=== PATIENT | male | born 1960 | race Hispanic/Latino ===

== ENCOUNTER 2017-11-26 18:48 | Inpatient (IN) | payer MEDICARE ==
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
[2017-11-26 19:09] VITALS: BMI 37.2
[2017-11-26 20:01] LABS: ACETAMINOPHEN < 10.0 ug/ml (10.0-20.0); SALICYLATE < 1 mg/dL (2.0-20.0)
[2017-11-26 20:03] LABS: ALBUMIN 3.3 g/dL (3.0-4.8); ALT/SGPT 39 U/L (7-56); AST/SGOT 39 U/L (17-59); BLOOD UREA NITROGEN 14 mg/dL (7-21); CALCIUM 8.9 mg/dL (8.4-10.5); GFR AFRICAN-AMERICAN > 60; GFR NON-AFRICAN AMERICAN > 60
[2017-11-26 20:07] LABS: BASO # 0.05 K/mm3 (0.0-2.0); BASO % 0.9 % (0.0-3.0); EOS # 0.4 (0.0-0.7); EOS % 6.1 % (1.5-5.0); GRAN # 2.33 (1.4-6.5); GRAN % 40.4 % (50.0-68.0); HEMOGLOBIN 14.3 g/dL (14.0-18.0); LYMPH # 2.7 (1.2-3.4); MEAN CELL VOLUME 91.4 fl (80.0-105.0); MEAN CORPUSCULAR HEMOGLOBIN 32.4 pg (25.0-35.0); MEAN CORPUSCULAR HGB CONC 35.5 g/dl (31.0-37.0); MEAN PLATELET VOLUME 10.2 fl (7.0-11.0); MONO # 0.3 (0.1-0.6); MONO % 5.6 % (1.0-6.0); RBC 4.41 10^6/uL (3.5-6.1); RED CELL DISTRIBUTION WIDTH 13.8 % (11.5-14.5); WHITE BLOOD COUNT 5.8 10^3/ul (4.5-11.0)
[2017-11-26 20:10] LABS: VENOUS BLOOD GAS BASE EXCESS -0.6 mmol/L (0.0-2.0); VENOUS BLOOD GAS PO2 68 mm/Hg (30-55); VENOUS BLOOD PH 7.37 (7.32-7.43)
[2017-11-26 20:23] LABS: B-TYPE NATRIURETIC PEPTIDE 30.7 pg/mL (0-450)
[2017-11-26] MEDS ORDERED: cefTRIAXone 1 gm 1 GM/100 ML BAG IVPB STA (20:27)
[2017-11-26] MEDS ORDERED: Azithromycin 500MG/NS 250ml 500 MG/250 ML BAG IVPB STA (20:27)
[2017-11-26] MEDS ORDERED: Sodium Chloride 0.9% 1,000 ML IV STA (20:47)
[2017-11-26] MEDS: Sodium Chloride 0.9% 1,000 ML IV SCH (22:56)
[2017-11-27 05:17] LABS: URINE BILIRUBIN NEGATIVE (NEGATIVE); URINE BLOOD NEGATIVE (NEGATIVE); URINE GLUCOSE (UA) NEGATIVE (NEGATIVE); URINE LEUKOCYTE ESTERASE NEGATIVE Leu/uL (NEGATIVE); URINE PROTEIN NEGATIVE mg/dL (<30 mg/dL); URINE UROBILINOGEN >=8.0 E.U./dL (<1 E.U./dL)
[2017-11-27 05:26] LABS: URINE APPEARANCE CLEAR (CLEAR); URINE COLOR YELLOW (YELLOW)
[2017-11-27 05:54] LABS: BARBITURATES, UR NEGATIVE (NEGATIVE); BENZODIAZEPINES, UR POSITIVE (NEGATIVE); OPIATES, UR NEGATIVE (NEGATIVE); PHENCYCLIDINE, UR NEGATIVE (NEGATIVE)
[2017-11-27] MEDS: Albuterol 0.083% Inhal Sol (2.5 mg/3 mL) UD INH SCH ×4 (07:18→20:32)
[2017-11-27] MEDS: cefTRIAXone 1 gm 1 GM/100 ML BAG IVPB SCH (09:55)
--- NOTE | 2017-11-27 09:57 | CARD ---
APPROVED REPORT Date of service: 11/26/2017 EKG Measurement Heart [id number] <Conclusion> Sinus rhythm with 1st degree AV block Otherwise normal ECG
--- NOTE | 2017-11-27 10:55 | RAD ---
Date of service: 11/26/2017 HISTORY: medical clearance COMPARISON: No prior. FINDINGS: LUNGS: No focal infiltrates. Increased interstitial markings. PLEURA: No significant pleural effusion identified, no pneumothorax apparent. CARDIOVASCULAR: No radiographic findings to suggest acute or significant cardiovascular disease. OSSEOUS STRUCTURES: No significant abnormalities. VISUALIZED UPPER ABDOMEN: Normal. OTHER FINDINGS: None. IMPRESSION: No active disease.
[2017-11-27] MEDS: Azithromycin 500MG/NS 250ml 500 MG/250 ML BAG IVPB SCH (11:03)
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
[2017-11-27] MEDS: oxyCODONE 10 mg Immediate Release Tab PO PRN (19:34)
[2017-11-27] MEDS: Sodium Chloride 0.9% 1,000 ML IV SCH (21:26)
[2017-11-28] MEDS: Sodium Chloride 0.9% 1,000 ML IV SCH (01:33)
[2017-11-28] MEDS: oxyCODONE 10 mg Immediate Release Tab PO PRN ×2 (05:31→16:14)
--- NOTE | 2017-11-28 06:05 | HP ---
11/27/17 Copied To: Viv Mehta MD Attending MD: Viv Mehta MD CHIEF COMPLAINT: Agitation, fatigue. HISTORY OF PRESENT ILLNESS: Mr. Edson Coyle, 57-year-old male with history of hypertension, COPD, hip pain, taking Percocet, psychiatric history including ADHD, depression, schizoaffective, chronically bedridden, ALLERGIC TO CODEINE, has agitation, had acute episode of agitation. The patient was sent to emergency room because of he has episodes of agitation in the [facility], throwing wheelchairs against the windows. Ambulance was called and sent to emergency room for acute psychiatric evaluation. Outpatient, he is feeling very sleepy, dreamy. so he fight back to. No homicidal or suicidal ideation. No auditory or visual hallucinations. No night sweats. No rash. The patient also stated that he has been coughing for past few days as well as productive cough. PAST MEDICAL HISTORY: As above. FAMILY HISTORY: Father and mother, noncontributory. HABITS: No smoking. No drugs. No ethanol. ALLERGIES: THE PATIENT IS ALLERGIC WITH CODEINE. REVIEW OF SYSTEMS: The patient was seen and examined on the bedside. Feeling comfortable. No nausea, vomiting, or diarrhea. Feeling fatigued and tired. No vision changes. No hearing changes. no shortness of breath. No chest pain. PHYSICAL EXAMINATION: VITAL SIGNS: Temperature 98, pulse 66, respiratory rate 18, blood / 80 , pulse oximetry 98. HEENT: Head normocephalic, atraumatic. Eyes, PERRLA. Extraocular muscles intact. Conjunctivae clear. Nose patent. Mucous membrane moist. NECK: Supple. No carotid bruit. No JVD or thyromegaly. CHEST: Bilaterally symmetrical. HEART: S1 and S2 positive. LUNGS: Clear to auscultation. ABDOMEN: Soft. EXTREMITIES: No edema. No cyanosis. NEUROLOGICAL: The patient is awake and alert. Moving all 4 extremities. No focal deficits. LABORATORY DATA: White blood cells 5.8, hemoglobin 14.3, hematocrit 40.3, platelets 148. Sodium 146, potassium 3.9, BUN 14, creatinine 0.7, glucose 124. ASSESSMENT AND PLAN: Mr. Edson Coyle, 57-year-old male has anemia, hyperchloremia, renal insufficiency. The patient came with delirium, pneumonia, abnormal chest x-ray. We admitted the patient. Antibiotics started. Infectious Disease and GI consult called. The patient has history of hip pain. Gastrointestinal and deep venous thrombosis prophylaxes given. Repeat labs. We will follow up. Viv Mehta MD MTDD
[2017-11-28 06:42] LABS: HEMOGLOBIN 14.7 g/dL (14.0-18.0); MEAN CELL VOLUME 91.2 fl (80.0-105.0); MEAN CORPUSCULAR HEMOGLOBIN 32.5 pg (25.0-35.0); MEAN CORPUSCULAR HGB CONC 35.6 g/dl (31.0-37.0); MEAN PLATELET VOLUME 9.9 fl (7.0-11.0); RBC 4.53 10^6/uL (3.5-6.1); RED CELL DISTRIBUTION WIDTH 13.7 % (11.5-14.5); WHITE BLOOD COUNT 4.3 10^3/ul (4.5-11.0)
[2017-11-28 06:53] LABS: IRON 213 ug/dL (45-180)
[2017-11-28 07:03] LABS: % IRON SATURATION 65 % (20-55); TOTAL IRON BINDING CAPACITY 328 ug/dL (261-462)
[2017-11-28 07:04] LABS: LDL CHOLESTEROL 50 mg/dL (0-129)
[2017-11-28 07:12] LABS: ALBUMIN 3.3 g/dL (3.0-4.8); ALT/SGPT 37 U/L (7-56); AST/SGOT 35 U/L (17-59); BLOOD UREA NITROGEN 9 mg/dL (7-21); CALCIUM 8.4 mg/dL (8.4-10.5); GFR AFRICAN-AMERICAN > 60; GFR NON-AFRICAN AMERICAN > 60; HDL CHOLESTEROL 49 mg/dL (29-60)
[2017-11-28] MEDS: Albuterol 0.083% Inhal Sol (2.5 mg/3 mL) UD INH SCH ×4 (07:20→20:27)
[2017-11-28] MEDS: cefTRIAXone 1 gm 1 GM/100 ML BAG IVPB SCH (10:56)
[2017-11-28] MEDS: Azithromycin 500MG/NS 250ml 500 MG/250 ML BAG IVPB SCH (10:56)
[2017-11-28 12:51] LABS: FOLATE 13.8 ng/mL
[2017-11-28] MEDS: Cefepime 1gm in NS 100ml 1 GM/100 ML BAG IVPB SCH ×2 (16:14→23:23)
--- NOTE | 2017-11-28 20:43 | CON ---
Copied To: Brenton Cesar MD Attending MD: Brenton Cesar MD DATE: 11/28/2017 HISTORY OF PRESENT ILLNESS: The patient is in bed, in no acute distress, nontoxic. PHYSICAL EXAMINATION: VITAL SIGNS: Temperature is 98, blood pressure is 120/70, respiratory rate 16. HEENT: Unremarkable. NECK: Supple. LUNGS: Have decreased breath sounds. HEART: Normal S1, S2. ABDOMINAL: Soft, nontender. CHIEF COMPLAINT: Weakness. REVIEW OF SYSTEMS: A 12-point review systems is performed. PAST MEDICAL HISTORY: Significant for hypertension, COPD, diabetes, schizophrenia, depression and chronic bedridden. PAST SURGICAL HISTORY: Significant for a hip. ALLERGIES: THE PATIENT IS ALLERGIC TO CODEINE. MEDICATIONS: Noted. PHYSICAL EXAMINATION: As stated: VITAL SIGNS: Stable with temperature of 98, blood pressure is 150/90, respiratory rate of 20, heart rate of 94. LABORATORY EXAMINATION: Reveals a white count of 5.8, hemoglobin of 14. Chemistries are reviewed. Urinalysis is noted. Chest x-rays reported to be negative. Blood cultures are negative. Urine cultures are negative. ASSESSMENT AND PLAN: A 57-year-old long term male with history of hypertension, chronic obstructive lung disease, diabetes mellitus, schizophrenia, depression, chronic bedridden, history of a hip surgery who was admitted with weakness and mild cough, which is worse than his usual cough, although the chest x-ray is negative. Blood culture is negative. Urine culture is negative. diagnoses: 1. Rule out healthcare-associated pneumonia. We will check on the procalcitonin and CAT scan of the chest and empirically start doxycycline and Maxipime. We will make further recommendations. We will also request human immunodeficiency virus test because of his age. We will follow closely with you pending CAT scan of the chest results and procalcitonin. If that is negative, we will discontinue the antibiotics. We will also check human immunodeficiency virus. Brenton Cesar MD : 11/28/2017 16:43:42
--- NOTE | 2017-11-28 21:05 | CON ---
Copied To: Rik Bain MD Attending MD: Rik Bain MD DATE: 11/28/2017 HISTORY OF PRESENT ILLNESS: The patient is a 57-year-old single white male who apparently has a psychiatric history of depression and schizoaffective disorder, who has been seen on the medical site by psychiatric consultation due to his psychiatric history as well as recent episodes of agitation in the detention. I reviewed recent notes and met with patient at bedside. He appears to only be oriented to himself. He has no idea where he is located, what month it is, or what year it is. His thought process is scattered, confused, and it is very difficult for him to maintain focus, and he often rambles into tangential and illogical ramblings in response to my questioning. Nonetheless, he has been in control in the course of my interview and he was generally pleasant and cooperative. He was able to tell me where he was born; however, cannot recall answers to my questions as to where his prior used to be or where he currently lives or obtains his medications. He does recall he has a psychiatric history; however, he denies having any psychiatric symptoms at this time including depression, hallucinations, anxiety, or paranoia. The patient does admit that he has bad dream. The patient does not know why he is in the hospital either. It is hard to maintain an interview as the patient's focus is inconsistent and poor. His affect is generally labile. He does not appear to be responding to internal stimuli. His insight and judgement are fair. Vital signs are reviewed and they are elevated. Labs are reviewed as well by this provider. RELEVANT PSYCHIATRIC MEDICATIONS: Include Xanax 0.5 mg p.o. t.i.d. p.r.n., Elavil 100 mg p.o. at bedtime, Lamictal 200 mg p.o. b.i.d. PSYCHIATRIC HISTORY: The patient does have a reported history of schizophrenia versus depression versus schizoaffective disorder. He appears to be in psychiatric treatment, but he does not know who his provider is, but indicated that his provider is at [facility] and that he has been following up with this provider for 4 years. The patient also reports that he has been prescribed Lamictal, Adderall and Xanax for his nerves. He is aware that he has also been prescribed Elavil to help him sleep. He appears to be consistent with the medication regimen that I have observed on medical floor. He denies any history of suicide attempts. SOCIAL HISTORY: The patient reports that he was born in [place]. He is not . He has no kids. He used to drink alcohol and smoke marijuana over 25 years ago, but denies any recently. IMPRESSION: Schizoaffective disorder by history as well as delirium. RECOMMENDATIONS: We will continue with current treatment and medications; however, we will add p.r.n.'s as the patient might become agitated due to delirium. We will follow up the patient and monitor his progress, and determine whether he needs further psychiatric stabilization once he is medically cleared. At this time, I will start Seroquel 12.5 mg b.i.d. and 25 mg at bedtime conservatively in this patient who I am not familiar with and we will follow closely to titrate, so that these medications are efficacious, but not sedative. Rik Bain MD
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
[2017-11-29] MEDS: oxyCODONE 10 mg Immediate Release Tab PO PRN ×3 (07:40→22:49)
[2017-11-29] MEDS: Sodium Chloride 0.9% 1,000 ML IV SCH ×2 (07:42→17:12)
[2017-11-29] MEDS: Albuterol 0.083% Inhal Sol (2.5 mg/3 mL) UD INH SCH ×4 (07:44→19:58)
--- NOTE | 2017-11-29 11:50 | CT ---
Date of service: 11/28/2017 PROCEDURE: CT Chest without contrast HISTORY: r/o infil COMPARISON: None available. TECHNIQUE: Contiguous axial images were obtained through the chest without intravenous contrast enhancement. Sagittal and coronal reconstructions were performed. Radiation dose (DLP): mGy-cm. This CT exam was performed using one or more of the following dose reduction techniques: Automated exposure control, adjustment of the mA and/or kV according to patient size, and/or use of iterative reconstruction technique. FINDINGS: LUNGS: Linear scarring at the lung bases. MEDIASTINUM: Unremarkable thoracic aorta. No aneurysm. Normal sized heart. Main pulmonary artery unremarkable. No vascular congestion. No lymphadenopathy. PLEURA: No pleural fluid. No pneumothorax. BONES: No fracture. No destructive lesion. UPPER ABDOMEN: Grossly unremarkable. OTHER FINDINGS: None. IMPRESSION: Unremarkable non-contrast enhanced CT of the chest. Concordant results (preliminary interpretation) provided by [facility]. Procedure Completed: 19:52. Preliminary ([facility]) Report: Dictated and Authenticated: 21:10. Final Interpretation: 11:43. November 29, 2017.
[2017-11-29] MEDS: Cefepime 1gm in NS 100ml 1 GM/100 ML BAG IVPB SCH (13:42)
--- NOTE | 2017-11-29 15:36 | CP.PCM.PN ---
Subjective - Date & Time of Evaluation Date of Evaluation: 11/29/17 Time of Evaluation: 13:40 - Subjective Subjective: Not much cough, breathing well, no fevers. Objective - Vital Signs/Intake and Output Vital Signs (last 24 hours): Temp Pulse Resp BP Pulse Ox 98.7 F 87 20 108/59 L 93 L 11/29/17 13:04 11/29/17 13:04 11/29/17 13:04 11/29/17 13:04 11/29/17 13:04 Intake and Output: 11/29/17 11/29/17 06:59 18:59 Intake Total 240 480 Output Total 900 100 Balance -660 380 - Medications Medications: Current Medications Albuterol Sulfate (Albuterol 0.083% Inhal Franny (2.5 Mg/3 Ml) Ud) 2.5 mg INH QIDRESP [facility] Last Admin: 11/29/17 12:16 Dose: 2.5 mg Alprazolam (Xanax) 0.5 mg PO TID PRN; Protocol PRN Reason: Anxiety Last Admin: 11/27/17 17:55 Dose: 0.5 mg Amitriptyline HCl (Elavil) 100 mg PO HS [facility] Last Admin: 11/28/17 21:40 Dose: 100 mg Aspirin (Aspirin) 325 mg PO DAILY [facility] Last Admin: 11/29/17 09:02 Dose: 325 mg Furosemide (Lasix) 40 mg PO DAILY [facility] Last Admin: 11/29/17 08:59 Dose: 40 mg Gabapentin (Neurontin) 300 mg PO BID [facility] PRN Reason: Protocol Last Admin: 11/29/17 08:59 Dose: 300 mg Sodium Chloride (Sodium Chloride 0.9%) 1,000 mls @ 75 mls/hr IV .[id number] [facility] Last Admin: 11/29/17 07:42 Dose: 75 mls/hr Lamotrigine (Lamictal) 200 mg PO BID [facility] PRN Reason: Protocol Last Admin: 11/29/17 09:02 Dose: 200 mg Meclizine HCl (Antivert) 25 mg PO Q6H PRN PRN Reason: Dizziness Nicotine (Nicoderm Cq) 1 patch TD DAILY [facility] Last Admin: 11/29/17 09:02 Dose: Not Given Ondansetron HCl (Zofran Inj) 4 mg IVP Q6 PRN PRN Reason: Nausea/Vomiting Oxycodone HCl (Oxycodone Immediate Release Tab) 10 mg PO Q8H PRN PRN Reason: Pain, moderate (4-7) Last Admin: 11/29/17 07:40 Dose: 10 mg Quetiapine Fumarate (Seroquel) 12.5 mg PO BID [facility] PRN Reason: Protocol Last Admin: 11/29/17 09:02 Dose: 12.5 mg Quetiapine Fumarate (Seroquel) 25 mg PO HS [facility] PRN Reason: Protocol Last Admin: 11/28/17 21:40 Dose: 25 mg - Labs Labs: 11/28/17 05:45 11/28/17 05:45 - Constitutional Appears: Chronically Ill - Head Exam Head Exam: NORMAL INSPECTION - Respiratory Exam Respiratory Exam: Decreased Breath Sounds - Cardiovascular Exam Cardiovascular Exam: +S1, +S2 Assessment and Plan - Assessment and Plan (Free Text) Plan: Assessment cough without evidence of pneumonia on CT chest schizophrenia depression ADHD Plan Will d/c Cefepime and Doxycycline and monitor off antibiotics
--- NOTE | 2017-11-29 16:02 | CON ---
Copied To: Rik Bain MD Attending MD: Rik Bain MD DATE: 11/29/2017 HISTORY OF PRESENT ILLNESS: The patient is a 57-year-old single white male, who has a psychiatric history of schizoaffective disorder and depression, who has been seen on medical side by Psychiatry due to recent episodes of mental status changes and agitation in the [facility]. The patient appears to be suffering from delirium. I reviewed recent notes and met with the patient at bedside again today. He appears to be only oriented to himself as well as the fact that he is in the hospital. He does not recall which hospital he is in. He does not know what year it is. He does not know what month it is. Nonetheless, he is aware of his forgetfulness and confusion, but does not appear to be concerned. The patient readily admits that he has a psychiatric history; however, denies having any psychiatric symptoms at this time including depression, suicidal thoughts, hopelessness or hallucinations. He does not appear to be responding to internal stimuli at this time; however, this thought process is disorganized. He is confused and disoriented. The patient has been in control while he is on the medical floor being evaluated. It is worth noting that the patient does not have capacity to sign in if he should be medically cleared at this time. It is unclear if this is secondary to psychiatric conditions, delirium or both. Insight and judgment are poor. Vital signs are reviewed and labs were reviewed by this provider. RELEVANT PSYCHIATRIC MEDICATIONS: Include Xanax 0.5 mg p.o. t.i.d. p.r.n., Elavil 100 mg at bedtime, Lamictal 200 mg b.i.d., Seroquel 12.5 mg p.o. b.i.d. and 25 mg at bedtime. IMPRESSION: Schizoaffective disorder versus delirium versus both. RECOMMENDATIONS: We will continue with current treatment and medications including the Seroquel, which is added yesterday. The patient reports that he is doing much better and he had a very good night sleep, the best that he has had in a very long time and would like to continue with these medications at this time. Psychiatry will continue to follow up and monitor his mental status as well as tolerance to the medications. Rik Bain MD [facility] # [id number]
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
[2017-11-30] MEDS: Sodium Chloride 0.9% 1,000 ML IV SCH (05:15)
[2017-11-30 06:53] LABS: HEMOGLOBIN 13.4 g/dL (14.0-18.0); MEAN CELL VOLUME 92.6 fl (80.0-105.0); MEAN CORPUSCULAR HEMOGLOBIN 32.1 pg (25.0-35.0); MEAN CORPUSCULAR HGB CONC 34.6 g/dl (31.0-37.0); MEAN PLATELET VOLUME 9.8 fl (7.0-11.0); RBC 4.18 10^6/uL (3.5-6.1); RED CELL DISTRIBUTION WIDTH 13.7 % (11.5-14.5); WHITE BLOOD COUNT 5.3 10^3/ul (4.5-11.0)
[2017-11-30 07:08] LABS: BLOOD UREA NITROGEN 16 mg/dL (7-21); CALCIUM 8.2 mg/dL (8.4-10.5); GFR AFRICAN-AMERICAN > 60; GFR NON-AFRICAN AMERICAN > 60
[2017-11-30] MEDS: Albuterol 0.083% Inhal Sol (2.5 mg/3 mL) UD INH SCH ×4 (07:19→20:45)
--- NOTE | 2017-11-30 13:24 | PN ---
Copied To: Brenton Cesar MD Attending MD: Brenton Cesar MD DATE: 11/30/2017 LOCATION: The patient is in room 567, bed 1. SUBJECTIVE: He states he is doing much better. He has good appetite. He had no fevers, no chills. Uneventful night last night. PHYSICAL EXAMINATION: VITAL SIGNS: Temperature is 98, blood pressure is 108/60, respiratory rate 20, heart rate of 87. HEENT: Unremarkable. NECK: Supple. LUNGS: Have decreased breath sounds. HEART: Normal S1, S2. ABDOMINAL: Soft, nontender. LABORATORY EXAMINATION: Reveals a white count of 5.3, hemoglobin of 13. Chemistries reveals a BUN of 16, creatinine 0.7, procalcitonin is less than 0.05. Urinalysis is unremarkable. Toxicology is noted. HIV is negative. Microbiology reveals the blood cultures no growth. Urine cultures no growth. REVIEW OF SYSTEMS: Reveals the patient to be off of antibiotics. ASSESSMENT AND PLAN: A 57-year-old male seen in 7, bed 1 with cough without any evidence of pneumonia with a normal CAT scan of the chest and normal procalcitonin in a patient with schizophrenia, depression, attention deficit hyperactivity disorder. Currently off of antibiotics, afebrile with normal white count. The patient is at risk for developing nosocomial infections. Brenton Cesar MD : 11/30/2017 10:49:19
[2017-11-30] MEDS: oxyCODONE 10 mg Immediate Release Tab PO PRN (14:05)
--- NOTE | 2017-11-30 20:43 | CON ---
Copied To: Rik Bain MD Attending MD: Rik Bain MD DATE: 11/30/2017 HISTORY OF PRESENT ILLNESS: The patient is a 57-year-old single white male with a history of schizoaffective disorder, depression, who was seen by Psychiatry in the medical site due to episodes of mental status changes and agitation in [facility]. I have been meeting with the patient on a daily basis and monitoring his behavior as well as tolerance to the medications and the patient appears to be improving well, although remains confused and disoriented at times. There have been no episodes of agitation or acute paranoia, and he reports that his chronic hallucinations, hearing voices are actually improving in frequency and intensity with the initiation of Seroquel. The patient is pleasant during our interview and readily remembers me from our prior interviews. As I mentioned, he is disoriented. He knows he is in the hospital; however, he believes it is 06/2016. He does not appear to be responding to internal stimuli and delusions were not elicited. His insight and judgement . The patient also indicates that he is tolerating his medications. He denies any side effects at this time. The patient reports that he is optimistic and denies any acute hopelessness, suicidal thoughts, depression, or thoughts of harm others. RELEVANT PSYCHIATRIC MEDICATIONS: Include Xanax 0.5 p.o. t.i.d. p.r.n., Lamictal 200 p.o. b.i.d., Seroquel 12.5 mg p.o. b.i.d. and 25 mg at bedtime. IMPRESSION: Schizoaffective disorder by history. RECOMMENDATIONS: We will continue with current medications at current doses. There is no acute indication to change the patient's medication regimen at this time as he appears to be improving and there have been no further episodes of agitation, paranoia, or acute psychosis. Psychiatry will sign off at this time. Patient has been psychiatrically cleared to return to the halfway. Rik Bain MD
--- NOTE | 2017-12-01 01:23 | PN ---
Copied To: Evelia James MD Attending MD: Evelia James MD DATE: 11/30/2017 PULMONARY PROGRESS NOTE REFERRING PHYSICIAN: Viv Mehta MD SUBJECTIVE: The patient is sitting at the side of the bed, wants to take shower. Advised to take sponge bath. No headache. No rhinitis. No nausea. No vomiting. No diarrhea. Trace leg swelling. OBJECTIVE: GENERAL: In no acute distress. VITAL SIGNS: Temperature is 98, heart rate 87, respiratory rate is 20, blood pressure 134/89, pulse ox 98% on room air. HEENT: Moist mucous membrane. Crowded airway. NECK: Supple. No JVD. LUNGS: Have a fair airflow with few rhonchi. HEART: S1 and S2. ABDOMEN: Soft, nontender. No organomegaly. EXTREMITIES: Trace edema. NEUROLOGICAL: Awake and alert. Follows simple command. MEDICATIONS: He is on albuterol/Atrovent nebulizer four times a day, Antivert 25 mg every 6 hours p.r.n., aspirin 325 mg daily, Elavil 100 mg at bedtime, Lamictal 200 mg twice a day, Lasix 40 mg daily, gabapentin 300 mg twice day, Nicoderm patch daily, OxyContin immediate release 10 mg every 8 hours p.r.n., Seroquel 12.5 mg twice a day, Seroquel also 25 mg at bedtime, IV fluid normal saline 75 mL per hour, Xanax 0.5 mg three times a day p.r.n., Zofran p.r.n. basis. LABORATORY DATA: Shows hemoglobin 13.4, hematocrit 38.7, WBC 5.2, platelet is 127. Sodium 142, potassium 4.2, chloride 109, bicarbonate 26, BUN 16, creatinine 0.7, glucose 89, calcium is 8.2. Procalcitonin 0.05. Microbiology: Blood culture and urine culture, there is no growth. IMPRESSION AND PLAN: Schizophrenia, depression, attention deficit disorder, may have sleep apnea syndrome. Pulmonary point of view, doing okay. Keep head at 45 degrees. Avoid sedation. Recommend attended sleep study upon discharge as outpatient. Fall precaution. Spoke to nursing staff. Thank you and we will follow with you. Evelia James MD [facility] # [id number]
--- NOTE | 2017-12-01 03:33 | PN ---
Copied To: Viv Mehta MD Attending MD: Viv Mehta MD DATE: 11/30/2017 SUBJECTIVE: The patient is a 57-year-old male. Patient is looking comfortable. No nausea or vomiting. No diarrhea. Has good appetite. Last night was uneventful. No fever. No chills. No headache or dizziness. No chest pain or palpitations. PHYSICAL EXAMINATION: VITAL SIGNS: Temperature 98, blood pressure 108/60, respiratory rate 20, heart rate 87. HEENT: Head: Normocephalic and atraumatic. Eyes: PERRLA. Extraocular muscles intact. Conjunctivae clear. Nose: Patent. NECK: Supple. No carotid bruit, JVD or thyromegaly. CHEST: Bilaterally symmetrical. HEART: S1 and S2 positive. LUNGS: Clear to auscultation. ABDOMEN: Soft. Bowel sounds present. No organomegaly. EXTREMITIES: No edema. No cyanosis. NEUROLOGIC: Patient is awake and alert. Moving all four extremities. No focal deficits. MEDICATIONS: Albuterol, meclizine, aspirin, Elavil, Lamictal, Lasix, Neurontin, Nicoderm patch, oxycodone, Seroquel, NS, Xanax, Zofran. LABORATORY DATA: White blood cell 5.3, hemoglobin 13.4, hematocrit 38.7, platelets 127. Sodium 143, potassium 4.2, BUN 16, creatinine 0.7, calcium 8.2. ASSESSMENT AND PLAN: Mr. Edson Coyle is a 57-year-old male with leukopenia, improved anemia, hyperchloremia, hypocalcemia, amphetamine and benzodiazepine was positive in the system. Seen by Infectious Disease, Dr. Brenton Cesar. Schizophrenia, depression, attention deficit hyperactivity disorder. Continue off the antibiotics. Afebrile with normal white count. As per Infectious Disease, patient does not need antibiotics. Seen by Dr. Rik Bain, psychiatrist. GI and DVT prophylaxes. Repeat labs. We will follow up. Viv Mehta MD
[2017-12-01] MEDS: oxyCODONE 10 mg Immediate Release Tab PO PRN ×2 (04:55→13:08)
[2017-12-01] MEDS: Albuterol 0.083% Inhal Sol (2.5 mg/3 mL) UD INH SCH ×4 (07:20→20:03)
--- NOTE | 2017-12-01 13:02 | PN ---
Copied To: Brenton Cesar MD Attending MD: Brenton Cesar MD DATE: 12/01/2017 SUBJECTIVE: The patient is in bed, in no acute distress, nontoxic. He is doing much better today. PHYSICAL EXAMINATION: VITAL SIGNS: On exam, temperature is 98, blood pressure is 130/80, respiratory rate of 20, heart rate of 87. HEENT: Examination of HEENT is unremarkable. NECK: Supple. LUNGS: Have decreased breath sounds. HEART: Normal S1, S2. ABDOMEN: Soft, nontender. No organomegaly. No rebound. No guarding. No masses. LABORATORY DATA: Laboratory examination reveals the blood cultures no growth. Urine cultures no growth. The white count is 5.3, hemoglobin of 13. Chemistries are noted. Procalcitonin is normal. Urinalysis is negative. The patient's HIV is negative. Microbiology is reviewed. Review of orders reveals the patient to be on no antibiotics. Dr. Mehta's note is reviewed from yesterday. Dr. James's note from yesterday is also reviewed. ASSESSMENT AND PLAN: A 57-year-old male who was seen earlier this morning, doing much better. His cough is improved with no evidence of pneumonia on CAT scan of the chest, normal procalcitonin, cultures negative with schizophrenia, depression, attention deficit hyperactivity disorder. Currently, off of antibiotics, afebrile, normal white count. The patient is at risk for developing nosocomial infections. Brenton Cesar MD
[2017-12-01 14:11] VITALS: RESP 18
--- NOTE | 2017-12-02 00:19 | PN ---
Copied To: Viv Mehta MD Attending MD: Viv Mehta MD DATE: 12/01/2017 SUBJECTIVE: The patient is seen and examined on bedside, date 12/01/2017, looking comfortable. Do not look like in distress, not toxic. No shortness of breath. No nausea, vomiting, diarrhea. No hematuria or hematochezia. No swelling of the legs. No chest pain. No palpitation. No headache. No dizziness. PHYSICAL EXAMINATION: VITAL SIGNS: Temperature 98, blood pressure , respiratory rate 20, heart rate 87. HEENT: Head normocephalic, atraumatic. Eyes PERRLA. Extraocular muscles intact. Conjunctivae clear. Nose patent. Mucous membrane moist. NECK: Supple. No carotid bruit. No JVD or thyromegaly. CHEST: Bilaterally symmetrical. HEART: S1 and S2 positive. LUNGS: Clear to auscultation. ABDOMEN: Soft. Bowel sounds positive. No organomegaly. EXTREMITIES: No edema. No cyanosis. NEUROLOGICAL: The patient is awake and alert. Moving all 4 extremities. No focal deficits. MEDICATIONS: Antivert, aspirin, Elavil, Lamictal, Lasix, Neurontin, NicoDerm, oxycodone, Seroquel, NS, Xanax, Zofran. LABORATORY DATA: White blood cells 5.3, hemoglobin 13.4, hematocrit 38.7, platelets 127. Sodium 143, potassium 4.2, BUN 16, creatinine 0.7, glucose 8.2. ASSESSMENT AND PLAN: Mr. Edson Coyle, 57-year-old male with history of leukopenia, improved, anemia, hyperchloremia, hypocalcemia, amphetamine and benzodiazepine were positive in drug screening. Seen by Dr. Cesar, Infectious Disease. History of schizophrenia, depression, attention deficit hyperactivity disorder. The patient is not getting any antibiotics. Out of bed, physical therapy. GI, DVT prophylaxis. Repeat labs. We will follow up. Viv Mehta MD
[2017-12-02 06:25] LABS: HEMOGLOBIN 12.6 g/dL (14.0-18.0); MEAN CELL VOLUME 91.8 fl (80.0-105.0); MEAN CORPUSCULAR HEMOGLOBIN 32.1 pg (25.0-35.0); MEAN PLATELET VOLUME 9.8 fl (7.0-11.0); RBC 3.92 10^6/uL (3.5-6.1); RED CELL DISTRIBUTION WIDTH 13.9 % (11.5-14.5); WHITE BLOOD COUNT 4.4 10^3/ul (4.5-11.0)
[2017-12-02 06:51] LABS: BLOOD UREA NITROGEN 14 mg/dL (7-21); CALCIUM 8.2 mg/dL (8.4-10.5); GFR AFRICAN-AMERICAN > 60; GFR NON-AFRICAN AMERICAN > 60
[2017-12-02] MEDS: Albuterol 0.083% Inhal Sol (2.5 mg/3 mL) UD INH SCH ×2 (07:06→11:13)
[2017-12-02 07:53] VITALS: PULSE 71; TEMP 97.7; O2SAT 96
[2017-12-02 09:23] VITALS: BP 122/82
[2017-12-02] MEDS ORDERED: Mupirocin 2% Ointment 15 GM TUBE TOP SCH (18:00)
--- NOTE | 2017-12-02 18:10 | CP.PCM.PN ---
Subjective - Date & Time of Evaluation Date of Evaluation: 12/02/17 Time of Evaluation: 12:10 - Subjective Subjective: Comfortable in bed, cough is improved, no fevers. Objective - Vital Signs/Intake and Output Vital Signs (last 24 hours): Temp Pulse Resp BP Pulse Ox 97.7 F 71 18 120/80 96 12/02/17 07:53 12/02/17 07:53 12/02/17 07:53 12/02/17 07:53 12/02/17 07:53 Intake and Output: 12/02/17 12/02/17 06:59 18:59 Intake Total 1500 Balance 1500 - Medications Medications: Current Medications Albuterol Sulfate (Albuterol 0.083% Inhal Franny (2.5 Mg/3 Ml) Ud) 2.[address] [facility] Last Admin: 12/02/17 07:06 Dose: 2.5 mg Alprazolam (Xanax) 0.5 mg PO TID PRN; Protocol PRN Reason: Anxiety Last Admin: 12/01/17 15:20 Dose: 0.5 mg Amitriptyline HCl (Elavil) [address] [facility] Last Admin: 12/01/17 21:53 Dose: 100 mg Aspirin (Aspirin) [address] [facility] Last Admin: 12/01/17 09:44 Dose: 325 mg Furosemide (Lasix) [address] [facility] Last Admin: 12/01/17 09:44 Dose: 40 mg Gabapentin (Neurontin) [address] [facility] PRN Reason: Protocol Last Admin: 12/01/17 17:27 Dose: 300 mg Sodium Chloride (Sodium Chloride 0.9%) 1,000 mls @ 75 mls/hr IV .[id number] [facility] Last Admin: 11/30/17 05:15 Dose: 75 mls/hr Lamotrigine (Lamictal) [address] [facility] PRN Reason: Protocol Last Admin: 12/01/17 17:27 Dose: 200 mg Meclizine HCl (Antivert) 25 mg PO Q6H PRN PRN Reason: Dizziness Nicotine (Nicoderm Cq) [address] [facility] Last Admin: 12/01/17 09:45 Dose: Not Given Ondansetron HCl (Zofran Inj) 4 mg IVP Q6 PRN PRN Reason: Nausea/Vomiting Oxycodone HCl (Oxycodone Immediate Release Tab) 10 mg PO Q8H PRN PRN Reason: Pain, moderate (4-7) Last Admin: 12/01/17 13:08 Dose: 10 mg Quetiapine Fumarate (Seroquel) 12.5 mg PO BID [facility] PRN Reason: Protocol Last Admin: 12/01/17 17:28 Dose: 12.5 mg Quetiapine Fumarate (Seroquel) 25 mg PO HS [facility] PRN Reason: Protocol Last Admin: 12/01/17 22:21 Dose: 25 mg - Labs Labs: 12/02/17 06:00 12/02/17 06:00 - Constitutional Appears: Chronically Ill - Head Exam Head Exam: NORMAL INSPECTION - Respiratory Exam Respiratory Exam: Decreased Breath Sounds - Cardiovascular Exam Cardiovascular Exam: +S1, +S2 - GI/Abdominal Exam GI & Abdominal Exam: Soft. absent: Tenderness Assessment and Plan - Assessment and Plan (Free Text) Plan: Assessment cough without evidence of pneumonia on CT chest schizophrenia depression ADHD Plan continue to monitor off antibiotics
== END 2017-12-02 14:21 | DRG 204 ==
LOC: ED 18:48 → ERH 20:44 → 5RNO 22:12 → OBSVTOIN 11-27 16:42
PROVIDERS: ADMIT Internal Medicine; ATTEND Internal Medicine
PROC: 3E0F7GC Introduction of Other Therapeutic Substance into Respiratory Tract, Via Natural or Artificial Opening (ICD-10-PCS; principal; 2017-11-27)
DX: R05 Cough (principal); J44.9 Chronic obstructive pulmonary disease, unspecified; I10 Essential (primary) hypertension; F90.9 Attention-deficit hyperactivity disorder, unspecified type; F25.9 Schizoaffective disorder, unspecified; E11.65 Type 2 diabetes mellitus with hyperglycemia; E83.51 Hypocalcemia; D64.9 Anemia, unspecified; E87.8 Other disorders of electrolyte and fluid balance, not elsewhere classified; F32.9 Major depressive disorder, single episode, unspecified; I48.91 Unspecified atrial fibrillation; Z74.01 Bed confinement status; F17.200 Nicotine dependence, unspecified, uncomplicated; Z96.649 Presence of unspecified artificial hip joint; Z88.5 Allergy status to narcotic agent